=== PATIENT | female | born 1950 | race Caucasian/White ===

== ENCOUNTER 2018-06-08 12:16 | Emergency (ER) | payer OTHER ==
[~2018-06-08] VITALS: Ht 157.5 cm; Wt 79.4 kg
[2018-06-08] MEDS ORDERED: NEURONTIN800 MG PO (13:14)
[2018-06-08] MEDS ORDERED: NORVASC10 MG PO (13:15)
[2018-06-08] MEDS ORDERED: SIMVASTATIN40 MG PO (13:15)
[2018-06-08] MEDS ORDERED: VASCEPA1 GM PO (13:16)
[2018-06-08] MEDS ORDERED: AMBIEN10 MG PO (13:16)
[2018-06-08] MEDS ORDERED: FOLGARD TABLET1 EACH PO (13:17)
[2018-06-08] MEDS ORDERED: OMEGA 3 500 SO1 EACH PO (13:17)
[2018-06-08] MEDS ORDERED: CO Q-10200 MG PO (13:18)
[2018-06-08] MEDS ORDERED: ZIOPTAN 0.00151 EACH OP (13:18)
[2018-06-08] MEDS ORDERED: COSOPT PF EYE1 EACH OP (13:19)
== END 2018-06-08 21:20 | disposition home or self-care (01) ==
LOC: ER 12:16
DX: D25.1 Intramural leiomyoma of uterus (principal); N93.8 Other specified abnormal uterine and vaginal bleeding